=== PATIENT | male | born 1980 | race Caucasian/White ===

== ENCOUNTER 2016-03-12 01:50 | Emergency (ER) | payer MEDICAID ==
[2016-03-12] MEDS ORDERED: SODIUM CHLORIDE 0.9% 1,000 ML ONE (03:39)
== END 2016-03-12 05:22 | disposition home or self-care (01) ==
LOC: ER 01:50
CPT/HCPCS: 36415; 70450; 71010; 80053; 82550; 83735; 84484; 85025; 85610; 85730; 93005; 96360